=== PATIENT | female | born 1950 | race Caucasian/White ===

== ENCOUNTER → 2017-02-16 | Outpatient (CLI) | payer BC ==
[~2017-02-16] MED LIST: IBUP-1277 PO; NAPR220T PO
== END | disposition home or self-care (01) ==
LOC: C.PAPS 12:30
PROVIDERS: ATTEND Obstetrics & Gynecology
DX: Z12.4 Encounter for screening for malignant neoplasm of cervix (principal); Z78.0 Asymptomatic menopausal state

== ENCOUNTER → 2017-02-17 | Outpatient (CLI) | payer BC ==
--- NOTE | 2017-02-19 08:12 | MAMMOGRAPHY REPORT ---
BILATERAL DIGITAL SCREENING MAMMOGRAM TOMOSYNTHESIS WITH CAD: 02/17/2017 CLINICAL HISTORY: Routine screening. Patient has no complaints. TECHNIQUE: Breast tomosynthesis in addition to standard 2D mammography was performed. Current study was also evaluated with a Computer Aided Detection (CAD) system. COMPARISON: Comparison is made to exams dated: 02/26/2016 mammogram, 02/26/2016 stereotactic biopsy, 02/12/2016 mammogram, 01/24/2016 mammogram, 08/18/2011 mammogram, and 08/07/2010 mammogram - [facility]. BREAST COMPOSITION: There are scattered areas of fibroglandular density in both breasts. FINDINGS: There are stable metallic biopsy markers in each breast, denoting the site of prior benign stereotactic biopsies. There is a new small subtle area of architectural distortion just lateral to the biopsy marker in the right breast, on the CC projection that likely represent postbiopsy change (seen on right CC tomosynthesis slice 23/69). However, additional spot compression tomosynthesis vie ws and possible ultrasound are recommended to exclude a subtle developing mass. There are stable groupings of benign-appearing calcifications in both breasts. No other suspicious ma ss, architectural distortion or cluster of microcalcifications is seen. IMPRESSION: ACR BI-RADS CATEGORY 0: INCOMPLETE EVALUATION: NEED ADDITIONAL IMAGING EVALUATION The small subtle new area of architectural distortion lateral to the biopsy marker clip in the right posterior breast needs additional imaging evaluation. The patient will be called to schedule an appointment. Approximately 10% of breast cancers are not detected with mammography. A negative mammographic report should not delay biopsy if a clinically suggestive mass is present. Radha Farooq M.D. ay/:02/17/2017 17:11:26 Zoology Technical Officer: Beena Campbell, [facility] letter sent: Addl Imaging 0 BI-RADS Code: ACR BI-RADS Category 0: Incomplete Evaluation: Need Additional Imaging Evaluation
== END | disposition home or self-care (01) ==
LOC: C.MAMM 07:16
PROVIDERS: ATTEND Obstetrics & Gynecology
DX: Z12.31 Encounter for screening mammogram for malignant neoplasm of breast (principal); R92.8 Other abnormal and inconclusive findings on diagnostic imaging of breast; Z98.890 Other specified postprocedural states

== ENCOUNTER → 2017-03-03 | Outpatient (CLI) | payer BC ==
--- NOTE | 2017-03-03 15:17 | MAMMOGRAPHY REPORT ---
UNILATERAL RIGHT DIGITAL DIAGNOSTIC MAMMOGRAM TOMOSYNTHESIS AND TARGETED RIGHT ULTRASOUND: 03/03/2017 CLINICAL HISTORY: History of benign right breast stereotactic biopsy January 2016. The patient was called back from screening mammogram for possible architectural distortion at the biopsy site. TECHNIQUE: Breast tomosynthesis in addition to standard 2D mammography was performed. Spot compress ion right CC and MLO tomosynthesis images including C views were obtained. COMPARISON: Comparison is made to exams dated: 02/17/2017 mammogram, 02/26/2016 mammogram, 6 stereotactic biopsy, 02/12/2016 mammogram, 01/24/2016 mammogram, and 08/07/2010 mammogram - [facility]. BREAST COMPOSITION: There are scattered areas of fibroglandular density in the right breast. FINDINGS: The previously described possible architectural distortion seen near the biopsy marker clip in the right upper outer quadrant does not clearly persist on the spot compression views. The tissu e in this region has the appearance of normal fibroglandular tissue on the additional tomosynthesis i mages, without a suspicious mass or persistent architectural distortion seen. The tissue in this reg ion appears similar to prior exams on the additional views, including the 2010 exam. Targeted ultrasound was performed of the right upper outer quadrant in the region of the questionable architectural distortion. Sonographically normal tissue is seen in this region, without evidence of a mass or other suspicious sonographic abnormality. IMPRESSION: ACR BI-RADS CATEGORY 2: BENIGN, TARGETED ULTRASOUND ACR BI-RADS CATEGORY 2: BENIGN The previously described possible architectural distortion seen adjacent to the biopsy marker clip fr om prior benign stereotactic biopsy does not persist on the additional views, with no corresponding s uspicious sonographic abnormality evident. Findings are benign and felt to represent normal fibrogla ndular tissue. There is no mammographic or targeted sonographic evidence of malignancy. A 1 year scre ening mammogram is recommended. The patient has been verbally notified of the results. Approximately 10% of breast cancers are not detected with mammography. A negative mammographic report should not delay biopsy if a clinically suggestive mass is present. Rosaura Prince M.D. /:03/03/2017 08:34:11 Endorsement Clerk: Beena Campbell, [facility] letter sent: Normal 1/2 BI-RADS Code: ACR BI-RADS Category 2: Benign Ultrasound BI-RADS: ACR BI-RADS Category 2: Benign
== END | disposition home or self-care (01) ==
LOC: C.MAMM 08:02
PROVIDERS: ATTEND Obstetrics & Gynecology
DX: R92.8 Other abnormal and inconclusive findings on diagnostic imaging of breast (principal)

== ENCOUNTER → 2017-03-25 | Outpatient (CLI) | payer BC ==
[2017-03-25 16:01] LABS: MANUAL MICROSCOPIC REQUIRED? YES; URINE APPEARANCE CLOUDY (CLEAR); URINE BILIRUBIN NEG (NEG); URINE COLOR RED; URINE NITRITE NEG (NEG); URINE PH 6.5 (4.5-7.5); URINE SPECIFIC GRAVITY 1.015 (1.000-1.030); UROBILINOGEN NEG (NEG)
[2017-03-25 16:02] LABS: REVIEW REQ? NO
[2017-03-25 16:03] LABS: URINE RBC >30 /hpf (0-4)
[2017-03-25 16:04] LABS: URINE BACTERIA NEG (NEG); ZZUR CULT IF INDIC CLEAN CATCH YES
== END | disposition home or self-care (01) ==
LOC: C.LABSPEC 15:26
PROVIDERS: ATTEND Internal Medicine
DX: R39.9 Unspecified symptoms and signs involving the genitourinary system (principal)

== ENCOUNTER 2020-08-20 11:32 | Inpatient (IN) ==
--- NOTE | 2020-07-25 13:50 | PAT Medication Instructions ---
Medication Instructions Date of Service July 25, 2020 Home Medications Medication Instructions Recorded vitamins A,C,U-tnog-eijwxs 7,160 1 tab PO BID #60 tab 04/04/20 unit-113 mg-100 unit tablet atorvastatin 20 mg tablet 20 mg PO HS #90 tab 05/10/20 vitamins A,C,U-srug-vdfmjr 7,160 unit-113 mg-100 unit tablet 1 tab PO BID atorvastatin 20 mg tablet 20 mg PO HS meloxicam 15 mg tablet 15 mg PO QAM acetaminophen [Acetaminophen Extra Strength] 1,000 mg PO Q8H PRN cranberry 500 mg PO QAM multivitamin 1 tab PO QAM potassium gluconate 595 mg PO QAM ASK your surgeon for instructions meloxicam 15 mg tablet 15 mg PO QAM STOP taking 2 weeks before surgery (or as soon as possible if surgery is within 2 weeks) vitamins A,C,W-oxla-fucxzx 7,160 unit-113 mg-100 unit tablet 1 tab PO BID cranberry 500 mg PO QAM DO NOT take the morning of surgery multivitamin 1 tab PO QAM potassium gluconate 595 mg PO QAM Take morning of surgery With a small sip of water, OTHERWISE NOTHING TO EAT OR DRINK AFTER MIDNIGHT: acetaminophen [Acetaminophen Extra Strength] 1,000 mg PO Q8H PRN (okay to take up to 4 hours prior to surgery if needed) Take evening before surgery atorvastatin 20 mg tablet 20 mg PO HS acetaminophen [Acetaminophen Extra Strength] 1,000 mg PO Q8H PRN (if needed) Other Notes If you have any questions please call us at [phone] or [phone] or [phone] or [phone]
--- NOTE | 2020-07-31 08:54 | Anesthesiology Consultation ---
Date of Service July 31, 2020 Assessment & Plan (1) Encounter for pre-operative examination: COVID screening: Per assessment on 07/31: Travel screen negative, no known COVID- 19 positive contacts or current COVID-19 related symptoms. Patient fully vaccinated. Surgeon arranging preop COVID testing. Awaiting results. Chart Review Chart Review: Acceptable Risk for Surgery (pending surgeon-ordered PCP clearance) and Patient seen in Pre Admission Testing Teaching & Discussion Pre-Anesthesia Teaching/Discussion Notes: Instructed NPO after midnight before surgery,except medications with 15 cc of water. Medication instructions provided according to the PAT guidelines. History Surgery Operation Date: 08/20/20 07:15 Proposed Procedures p Right Total Hip Arthroplasty - Akbar Lion DO Height/Weight Height: 5 ft 4.5 in Weight: 99.5 kg Allergies Allergy/AdvReac Type Severity Reaction Status Date / Time ondansetron Allergy Intermediate Hives Verified 07/31/20 08:52 morphine AdvReac Mild GI upset Verified 07/31/20 08:52 Medications Home Medications Medication Instructions Recorded Confirmed Last Taken vitamins A,C,A-zalu-qutlte 7,160 1 tab PO BID #60 tab 04/04/20 07/30/20 Unknown unit-113 mg-100 unit tablet atorvastatin 20 mg tablet 20 mg PO HS #90 tab 05/10/20 07/30/20 Unknown meloxicam 15 mg tablet 15 mg PO QAM 07/18/20 07/30/20 Unknown acetaminophen [Acetaminophen Extra 1,000 mg PO Q8H PRN 07/23/20 07/30/20 Unknown Strength] cranberry 500 mg PO QAM 07/23/20 07/30/20 Unknown multivitamin 1 tab PO QAM 07/23/20 07/30/20 Unknown potassium gluconate 595 mg PO QAM 07/23/20 07/30/20 Unknown Past Medical History Medical History Degenerative disc disease Gallstone Heartburn occasional Hx of cervical cancer s/p chemo, radiation Hyperlipidemia Obesity Osteoarthritis Exercise / Class Metabolic Activity II 4-5 Yardwork/Stairs/Walk up hill (one flight of stairs (no chest pain, no sob)) Past Family History Family History Father Diabetes Brother Diabetes Sister Diabetes Other No family history of adverse response to anesthesia Denies family history of Ovarian cancer Prostate cancer Myocardial infarction Breast cancer Colorectal cancer Past Surgical History Surgical History History of ankle surgery Left History of conization of cervix History of tooth extraction Past Anesthesia History No Hx of Anesthesia Complications and No Family Hx of Anesthesia Complications History of PONV No Hx of PONV and No Hx of Motion Sickness Social History Smoking Status: Current every day smoker tobacco type: cigarettes Smoking cigarettes per day: 10-20 cigs/day (tobacco use x 50+ years) Do You Dip or Chew Tobacco: No Hx Alcohol Use: Yes Alcohol type: hard liquor alcohol intake frequency: a few times a week Hx Substance Use: No substance use type: does not use Review of Systems Patient denies chest pain, shortness of breath, dyspnea on exertion, fever, chills, cough, wheezing, palpitations. Physical Exam Vital Signs VITALS BP 123/77 P 85 TEMP 98.4 SP02 98%RA RESP 18 PHYSICAL Full cervical extension range of motion. Full TMJ range of motion. TMD 3 finger breaths Mallampati Score 2 Dentition: no lower teeth (full denture) Lungs: dimished breath sounds Cardiac: regular rate and rhythm, distant heart sounds Spine: normal Carotid arteries: negative bruit Extremities: no edema Testing Laboratory Results 07/31/20 09:18 07/31/20 09:18 PT 10.3 Seconds (9.0-12.0) 07/31/20 09:18 INR 1.0 (0.9-1.1) 07/31/20 09:18 APTT 27.1 Seconds (21.0-31.0) 07/31/20 09:18 Hemoglobin A1c 6.0 % (4.5-5.6) H 07/31/20 09:18 Urine Color Yellow 07/31/20 09:18 Urine Appearance Clear (Clear) 07/31/20 09:18 Urine pH 6.5 (4.5-7.5) 07/31/20 09:18 Ur Specific [place] 1.011 (1.000-1.030) 07/31/20 09:18 Urine Protein Negative (Negative) 07/31/20 09:18 Urine Glucose (UA) Negative (Negative) 07/31/20 09:18 Urine Ketones Negative (Negative) 07/31/20 09:18 Urine Nitrite Negative (Negative) 07/31/20 09:18 Ur Leukocyte Esterase 1+ (Negative) H 07/31/20 09:18 Urine WBC (Auto) 10-30 /hpf (0-5) H 07/31/20 09:18 Urine RBC (Auto) 0-4 /hpf (0-4) 07/31/20 09:18 U Hyaline Cast (Auto) 0 /lpf (0-5) 07/31/20 09:18 U Epithel Cells (Auto) >30 /lpf (0-5) H 07/31/20 09:18 Urine Bacteria (Auto) 2+ (Negative) H 07/31/20 09:18 Blood Type A Negative 07/31/20 09:18 Antibody Screen NEGATIVE 07/31/20 09:18 Surgeon's office made aware of abnormal UA* Electrocardiogram Date: 07/31/20 Normal sinus rhythm with sinus arrhythmia at 67 bpm. Chest X-Ray Date: 07/31/20 Findings: + NAD
--- NOTE | 2020-07-31 09:59 | XRay Report ---
XR chest Pre-admission PA/Lat CLINICAL HISTORY: Preoperative chest COMPARISON STUDY: No previous studies for comparison. FINDINGS: The cardiac and mediastinal contours are normal. There is no evidence of focal pulmonary co nsolidation. There is no evidence of failure. No pleural effusions are visualized.[ IMPRESSION: No active disease in the chest. ACT 112: Negative or not required by law. Electronically signed by: Ghanshyam Verdin M.D. 07/31/2020 9:58 AM
[2020-07-31 10:48] LABS: Basophils # (auto) 0.01 K/uL (0-0.2); Basophils % (auto) 0.1 %; Eosinophils # (auto) 0.05 K/uL (0-0.5); Eosinophils % (auto) 0.7 %; Hematocrit (blood only) 39.2 % (37-47); Hemoglobin 13.1 g/dL (12.0-16.0); Immature Granulocytes # (auto) 0.02 K/uL (0.00-0.02); Immature Granulocytes % (auto) 0.3 %; Lymphocytes # (auto) 1.49 K/uL (1.2-3.4); Lymphocytes % (auto) 21.9 %; Mean Corpuscular Hemoglobin 28.7 pg (25-34); Mean Corpuscular Hgb Conc 33.4 g/dL (32-36); Mean Corpuscular Volume 85.8 fL (80-100); Mean Platelet Volume 9.7 fL (7.4-10.4); Monocytes % (auto) 7.4 %; Neutrophils # (auto) 4.73 K/uL (1.4-6.5); Neutrophils % (auto) 69.6 %; Platelet Count 242 K/uL (130-400); RDW Standard Deviation 40.7 fL (36.4-46.3); Red Blood Count 4.57 M/uL (4.2-5.4)
[2020-07-31 10:52] LABS: Appearance Urine Clear (Clear); Bacteria Urine Automated 2+ (Negative); Bilirubin Urine Negative (Negative); Blood Urine Negative (Negative); Cast Urine Automated 0 /lpf (0-5); Color Urine Yellow; Epithelial Cell Urine Auto >30 /lpf (0-5); Glucose Urine UA Negative (Negative); Ketones Urine Negative (Negative); Leukocyte Esterase Urine 1+ (Negative); Nitrite Urine Negative (Negative); Protein Urine Negative (Negative); RBC Urine Automated 0-4 /hpf (0-4); Specific Gravity Urine 1.011 (1.000-1.030); Urobilinogen Urine Negative (Negative); pH Urine 6.5 (4.5-7.5)
[2020-07-31 10:55] LABS: Estimated Average Glucose 126 mg/dl
[2020-07-31 11:04] LABS: Partial Thromboplastin Time 27.1 Seconds (21.0-31.0); Prothrombin Time 10.3 Seconds (9.0-12.0)
--- NOTE | 2020-07-31 11:29 | Electrocardiogram Report ---
Test Reason : Blood Pressure : / mmHG Vent. Rate : 067 BPM Atrial Rate : 067 BPM P-R Int : 176 ms QRS Dur : 088 ms QT Int : 382 ms P-R-T Axes : 072 044 060 degrees QTc Int : 403 ms Normal sinus rhythm with sinus arrhythmia Normal ECG When compared with ECG of 24-MAR-2013 05:41, Vent. rate has decreased BY 35 BPM T wave amplitude has increased in Anterior leads Confirmed by Louis Mccabe ([id number]) on 07/31/2020 11:29:25 AM Referred By: Akbar Lion Confirmed By:Louis Mccabe
[2020-07-31 12:41] LABS: Albumin Level 3.7 gm/dl (3.4-5.0); BUN Creatinine Ratio 13.8 (10-20); Calcium 9.7 mg/dl (8.5-10.1); Creatinine Clr Calc Pharmacy 73.2 ml/min; Est GFR (African American) 82.2; Est GFR (Non-African American) 70.9; Potassium 4.6 mmol/L (3.5-5.1)
--- NOTE | 2020-08-18 10:03 | History & Physical Report ---
Date of Service August 20, 2020 Assessment & Plan (1) Degenerative joint disease of right hip: I have indicated the patient for right total hip replacement. The risks, benefits and complications of surgery were explained to the patient which include but not limited to infection, acute blood loss, DVT/PE, injury to nerves, vessels, bone, soft tissue, arthrofibrosis, chronic pain, failure of the prosthesis, hip dislocation, leg length discrepancy, need for additional surgery, cardiac and pulmonary events and . The patient wished to proceed with surgery and informed consent was obtained at this time. We will plan for 81mg ASA BID post-operatively for DVT prophylaxis. Upon discharge the patient will be discharged home with home health services. Appropriate clearances by PCP were obtained. History of Present Illness Chief Complaint: Right hip pain/DJD Primary Care Provider: Danny Bañuelos MD The patient is a 69 year old female who presents with complaints of severe right hip pain and DJD. The patient has failed outpatient conservative treatments to this point which included NSAIDs, activity modification, home exercise/walking program. The patient's pain and limited function have progressed to the point where they severely hinder their activities of daily living and they no longer tolerate exercise programs. They are requesting to proceed with total hip replacement surgery. Allergies Allergy/AdvReac Type Severity Reaction Status Date / Time ondansetron Allergy Intermediate Hives Verified 08/20/20 12:07 morphine AdvReac Mild GI upset Verified 08/20/20 12:07 Home Medications Medication Instructions Recorded Confirmed Type vitamins A,C,Q-kezq-upzlgb 7,160 1 tab PO BID #60 tab 04/04/20 08/20/20 Rx unit-113 mg-100 unit tablet atorvastatin 20 mg tablet 20 mg PO HS #90 tab 05/10/20 08/20/20 Rx meloxicam 15 mg tablet 15 mg PO QAM 07/18/20 08/20/20 History acetaminophen [Acetaminophen Extra 1,000 mg PO Q8H PRN 07/23/20 08/20/20 History Strength] cranberry 500 mg PO QAM 07/23/20 08/20/20 History multivitamin 1 tab PO QAM 07/23/20 08/20/20 History potassium gluconate 595 mg PO QAM 07/23/20 08/20/20 History Past Med/Surg History Medical History Degenerative disc disease Gallstone Heartburn occasional Hx of cervical cancer s/p chemo, radiation Hyperlipidemia Obesity Osteoarthritis Smoker Surgical History History of ankle surgery Left History of conization of cervix History of tooth extraction Family History Father Diabetes Brother Diabetes Sister Diabetes Other No family history of adverse response to anesthesia Denies family history of Ovarian cancer Prostate cancer Myocardial infarction Breast cancer Colorectal cancer Social History Smoking Status: Current every day smoker Age Started Using Tobacco: 16; packs per day: 1; Years Smoked: 52; Cigarettes Per Day: 10-20 cigs/day (tobacco use x 50+ years); Second Hand Exposure: Yes ( SMOKES); Do You Dip or Chew Tobacco: No; Tobacco Cessation Education Requested by Patient: No Hx Alcohol Use: Yes Alcohol type: hard liquor Hx Substance Use: No Preferred Language: Sinhala Visual Impairment: No Limitations Hearing Ability: Normal Test Deskman Required: No Beliefs That Will Affect Care: None marital status: Current Living Situation: Spouse current occupational status: retired Feels Safe at Home: Yes Safety Concerns: Feels Safe At This Time Childhood Exposure to Second-Hand Smoke: Yes caffeine: Yes Dental Care, Regularly: No Physical Activity Frequency: Does not Exercise Physical Activity Frequency Comment: not able to physical condition Seatbelt Use: always Sunscreen Use: Yes Assistive Devices: Denture - Lower and Glasses Review of Systems 2 Review of Systems: All systems reviewed & are unremarkable except as noted in HPI & below Constitutional: as per Subjective / HPI Physical Exam Physical Exam: RLE NVSI +EHL/FHL/TA/GS SILT grossly, +2 DP pulse, compartments soft NT, limited painful ROM of the hip, antalgic gait. Constitutional: WD/WN, vitals as above Eyes: PERRL, conjunctivae normal, anicteric sclerae ENMT: external ear and nose normal, oropharynx normal Neck: trachea midline, no thyromegaly Respiratory: normal respiratory effort, lungs clear to auscultation Cardiovascular: RRR, no murmur, no edema Gastrointestinal (Abdomen): normal bowel sounds, soft, nontender, no hepatosplenomegaly Musculoskeletal: no cyanosis or clubbing, extremities motor strength 5/5 Skin: no rashes, warm and dry Neurologic: patellar DTR's 2+ bilat, sensation intact Psychiatric: A+Ox3, euthymic affect Lymphatic: no cervical or axillary lymphadenopathy Results & Data Results & Data ([facility]) Diagnostic Findings Multiple views of the hip demonstrates severe DJD with complete loss of the joint space. +osteophytes, +sclerosis, +subchondral cysts. Pre Admission Testing Addendum Laboratory Results 07/31/20 09:18 07/31/20 09:18 PT 10.3 Seconds (9.0-12.0) 07/31/20 09:18 INR 1.0 (0.9-1.1) 07/31/20 09:18 APTT 27.1 Seconds (21.0-31.0) 07/31/20 09:18 Hemoglobin A1c 6.0 % (4.5-5.6) H 07/31/20 09:18 Urine Color Yellow 07/31/20 09:18 Urine Appearance Clear (Clear) 07/31/20 09:18 Urine pH 6.5 (4.5-7.5) 07/31/20 09:18 Ur Specific [place] 1.011 (1.000-1.030) 07/31/20 09:18 Urine Protein Negative (Negative) 07/31/20 09:18 Urine Glucose (UA) Negative (Negative) 07/31/20 09:18 Urine Ketones Negative (Negative) 07/31/20 09:18 Urine Nitrite Negative (Negative) 07/31/20 09:18 Ur Leukocyte Esterase 1+ (Negative) H 07/31/20 09:18 Urine WBC (Auto) 10-30 /hpf (0-5) H 07/31/20 09:18 Urine RBC (Auto) 0-4 /hpf (0-4) 07/31/20 09:18 U Hyaline Cast (Auto) 0 /lpf (0-5) 07/31/20 09:18 U Epithel Cells (Auto) >30 /lpf (0-5) H 07/31/20 09:18 Urine Bacteria (Auto) 2+ (Negative) H 07/31/20 09:18 Blood Type A Negative 07/31/20 09:18 Antibody Screen NEGATIVE 07/31/20 09:18 07/31/20 09:18 Urine Culture - Final Urine,Clean Catch Escherichia coli
[~2020-08-20 11:32] MED LIST changes: +ACETAMINOPHEN 500 MG TAB PO SCH; +BUPIVACAINE 0.5 % 5 MG/1 ML PF 10ML VIAL ONE; +CeleBREX 200 MG CAP PO SCH; +FAMOTIDINE 20 MG TAB PO SCH; +GABAPENTIN 300 MG CAP PO SCH; -IBUP-1277 PO; +LR 500ML BOLUS, THEN 15ML/HR IV SCH; +METOCLOPRAMIDE HCL 10 MG TABLET PO SCH; -NAPR220T PO; +ROPIVACAINE 0.5% HCL/PF 150 MG, BUPIVACAINE 0.75% MPF 20 ML, EPINEPHrine 30MG/30ML (OR ... INSTIL SCH; +Scopolamine 1 MG TDSY TD SCH; +TRANEXAMIC ACID 1,000 MG **IV Intra-op IV SCH; +TRANEXAMIC ACID 1,000 MG **IV Pre-op IV SCH; +ceFAZolin 2000MG 2,000 MG/15 ML SYR IV SCH; +dexAMETHasone 4 MG TAB PO SCH
[2020-08-20] MEDS ORDERED: ePHEDrine sulfate 50 MG/ML AMP IV PRN (11:48)
[2020-08-20] MEDS ORDERED: PHENYLEPHRINE 100MCG/ML 5ML SYR IV PRN (11:48)
[2020-08-20] MEDS ORDERED: HYDROmorphone INJ 1 MG/ML SYRINGE IV PRN (11:48)
[2020-08-20] MEDS ORDERED: ATROPINE SULFATE 0.1 MG/ML 10ML SYR IV PRN (11:48)
[2020-08-20] MEDS ORDERED: MEPERIDINE HCL 25 MG/ML CARP/VIAL IV PRN (11:48)
[2020-08-20] MEDS ORDERED: fentaNYL citrate 100 MCG/2 ML VIAL IV PRN (11:48)
[2020-08-20] MEDS ORDERED: LABETALOL HCL IV 5 MG/ML 20ML IV PRN (11:48)
[2020-08-20] MEDS ORDERED: MIDAZOLAM HCL 1 MG/ML 2ML VIAL ONE ×3 (14:36→16:51)
[2020-08-20] MEDS ORDERED: PROPOFOL IV EMULSION 10 MG/ML 20 ML VIAL IV ONE ×3 (14:38→16:50)
[2020-08-20] MEDS ORDERED: ORTHO JOINT ANESTHETIC ONE (15:00)
--- NOTE | 2020-08-20 15:37 | History & Physical Bridge Note ---
Date of Service August 20, 2020 History & Physical Bridge Note I have examined the patient, reviewed the History & Physical and in the interval since the performance of the History & Physical I have noted the following changes of clinical significance: no changes noted
[2020-08-20] MEDS ORDERED: KETAMINE 50 MG/5 ML SYRINGE ONE (16:47)
[2020-08-20] MEDS ORDERED: fentaNYL citrate 100 MCG/2 ML VIAL ONE (17:07)
--- NOTE | 2020-08-20 17:18 | Post Operative Brief Note ---
Immediate Post Op Note v1 Date of Surgery August 20, 2020 Pre & Post Diagnosis Operation Date: 08/20/20 14:15 Pre-Op Diagnosis: Degenerative joint disease of right hip Post-Op Diagnosis: Degenerative joint disease of right hip I identified the patient and participated in the time-out.: Yes Procedure Operation Date: 08/20/20 14:15 Actual Procedures p Right Total Hip Arthroplasty(Right) - Akbar Lion DO Surgeon Akbar Lion DO Tower Equipment Repairer Glenn Washburn Estimated Blood Loss 190 Findings Consistent with Post-Op Diagnosis Fluids See anesthesia report Specimens Femoral head Anesthesia Type Spinal MAC Complications none Disposition Disposition: Recovery Room Overlapping Procedure I was present for: the critical portions of procedure. I was immediately available: during the entire case. Back up surgeon: was not required during procedure.
--- NOTE | 2020-08-20 17:21 | Operative Report ---
Post Operative Report Pre & Post Diagnosis Operation Date: 08/20/20 14:15 Pre-Op Diagnosis: Degenerative joint disease of right hip Post-Op Diagnosis: Degenerative joint disease of right hip I identified the patient and participated in the time-out.: Yes Procedure Operation Date: 08/20/20 14:15 Actual Procedures p Right Total Hip Arthroplasty(Right) - Akbar Lion DO Surgeon Akbar Lion DO Assistant Press Operator Glenn Washburn Estimated Blood Loss 190 Findings Consistent with Post-Op Diagnosis Fluids See anesthesia report Specimens Femoral head Anesthesia Type Spinal MAC Complications none Disposition Disposition: Recovery Room Indications The patient is a 60-year-old female who presents with severe progressive right hip DJD who has failed outpatient conservative treatments. I indicated the patient for a total hip replacement and the risks and benefits were explained in detail which included but not limited to infection, bleeding, blood clot, damage to surrounding bone, nerves, vessels, soft tissue, hip dislocation, failure of the prosthesis, leg length discrepancy, need for additional surgery and . The patient agreed to proceed with replacement of the hip and informed consent was obtained. Appropriate clearances were obtained. Description of Procedure COMPONENTS USED: Hossein Biomet hip system: Acetabulum size 50 G7 osteo-Ti, femur size 11 reduced extended offset, femoral head 36-3.5, liner 50x36, acetabular screw 25 mm x 1. Following induction of adequate spinal anesthesia, the patient was transferred to the OR table and placed in lateral decubitus position with left hip down. The right hip was prepped and draped in the typical sterile fashion. A timeout was performed, patient identified and site petar confirmed. Appropriate antibiotics were given. A standard posterolateral/Justin-Langenbeck incision was made. Subcutaneous tissue was sharply dissected. Electrocautery was utilized for hemostasis. The fascia was incised throughout the length of the wound and retracted with the Charnley retractor. The bursa was taken down and the short external rotators were identified. The piriformis was tagged with #1 Vicryl. The short external rotators and capsule were divided from the posterior aspect of the femur using electrocautery. The posterior capsule was tagged with #1 Vicryl. Both external rotators and posterior capsule were swept posterior and protected, along with protecting the sciatic nerve. The hip was dislocated by flexion and internally rotation in a controlled manner and exposure of the femoral neck was gained with an old-style Hohmann and a blunt cobra retractor. A femoral cutting guide was utilized for making the appropriate level femoral neck cut with reciprocating saw. The femoral head was removed, measured and reserved on the back table. Next, attention was turned to the acetabulum. A posterior and anterior offset retractor was placed to gain adequate exposure. Acetabular labrum as well as posterior capsule elements were removed using electrocautery and forceps. Fovea centralis was cleared of all soft tissue. Sequential reaming was performed starting at 44 mm and carried up to a 49 mm and decision was made to proceed with impaction of a 50 mm G7 Osteo-Ti cup. This was impacted and held using a single 25 mm acetabular screw. The trial acetabular liner was placed at this time. Next, attention was turned to the proximal femur where a Bovie and pickup was used to further clear short external rotators from their insertion on the femur. Box osteotome and canal finder was used to gain access to the femoral canal and the lateral reamer on power was used to further open the proximal lateral canal. Sequentially rasping was carried up to a 11 which gave good fit and fill of the proximal femur. A trial reduction was carried out with a reduced extended offset femoral neck component a 36-3.5 mm femoral head. The trial reduction was stable in all degrees of rotation with no [id number] impingement. The hip was dislocated, trial components were removed and access to the acetabulum was re-established. The trial liner was removed and the cup was irrigated to ensure all debris was removed. The final acetabular liner was inserted and properly seated in the cup. Access to the femur was once more gained and the size 11 femoral stem with reduced extended offset was impacted into position. The hip was once more assessed with the 36-3.5 mm femoral head. Stability was accessed and found to be excellent with equal leg lengths. The hip was dislocated for the last time and the final 36-3.5 ceramic femoral head was impacted in place and the hip was reduced. Range of motion was checked once again and found to be stable. A Betadine soak was performed. After 3 minutes, the hip was once more irrigated with copious sterile saline solution with bacitracin. The mary grace-incisional soft tissue was injected utilizing [facility] ortho mix which includes a combination of Ropivicaine 0.5% 150mg, Bupivicaine 0.5%/Epinephrine 1:200,000 30ml, Toradol 30mg, Dexamethasone 4mg, Ketamine 10mg, Clonidine 100mcg and NSS 30ml Orthomix solution. The piriformis, external rotators and capsule were repaired to the greater trochanter through bone tunnels using #5 FiberWire. The fascia was closed using #1 Vicryl, subcutaneous tissue was closed using 2-0 Vicryl, and skin was closed with mary and a sterile dry dressing was applied which included dior incisional VAC. The patient tolerated the procedure well and was transported to PACU in stable condition. Due to the complex nature of the procedure, the entire surgery was performed with the operational assistance of Glenn Washburn PA-C. The nurse's assistant, under direct supervision, was involved in the actual performance of all aspects of the surgical procedure including patient positioning, hemostasis, tissue retraction, instrument management and wound closure. I attest to the content of the Intraoperative Record and any orders documented therein. Any exceptions are noted below.
--- NOTE | 2020-08-20 18:09 | Orthopedic Progress Note ---
Date of Service August 20, 2020 Assessment & Plan (1) Degenerative joint disease of right hip: Status post right total hip arthroplasty -Ancef x24 -DVT prophylaxis: SCDs, teds, 81 mg ASA twice daily -Weight-bear as tolerates right lower extremity -PT/OT -Posterior hip precautions -Postoperative x-ray demonstrates a well aligned well fixed prosthesis without fracture or dislocation -A.m. labs -DC planning Subjective Post Operative Progress Note Patient seen in PACU, comfortable, denies complaints, pain well controlled, no acute issues. Review of Systems Review of Systems: All systems reviewed & are unremarkable except as noted in HPI & below Constitutional: as per Subjective / HPI Physical Exam Physical Exam: Right lower extremity physical exam limited secondary to spinal anesthesia, +2 dorsalis pedis pulse, compartment soft nontender, dressing clean dry and intact, abduction pillow in place. Constitutional: WD/WN, vitals as above Results & Data ([facility]) Vital Signs (Past 12 Hours) Vital Signs Temp Pulse Pulse Resp BP Pulse Ox 08/20/20 17:50 75 18 145/88 H 98 08/20/20 17:44 36.1 C L 90 16 151/81 H 95 08/20/20 11:56 37 C 85 20 177/94 H 99
--- NOTE | 2020-08-20 18:13 | XRay Report ---
XR hip 1V RT w pelvis CLINICAL HISTORY: IN PACU - A/P PELVIS and LATERAL HIP COMPARISON: None. DISCUSSION: There are postsurgical changes of a total right hip arthroplasty. The acetabular and femo ral components appear well seated. There is gas within soft tissues consistent with recent surgery. T here are overlying skin mary. There are linear opaque densities lateral to the bladder to the righ t of midline. These cannot be further characterized on this study. These are potentially artifactual although calcification or contrast could appear similar.. IMPRESSION: 1. Postsurgical changes of a total right hip arthroplasty. No evidence of dislocation. ACT 112: Negative or not required by law. Electronically signed by: Ghanshyam Verdin M.D. 08/20/2020 6:11 PM
--- NOTE | 2020-08-20 18:29 | Anesthesiology Progress Note ---
Date of Service August 20, 2020 Anesthesia Post Procedure Vital Signs Vital Signs: Temp Pulse Pulse Resp BP Pulse Ox 08/20/20 18:20 36.5 C 63 16 137/88 97 08/20/20 18:10 77 18 145/76 H 98 08/20/20 18:00 68 20 119/80 98 08/20/20 17:50 75 18 145/88 H 98 08/20/20 17:44 36.1 C L 90 16 151/81 H 95 08/20/20 11:56 37 C 85 20 177/94 H 99 Transfer of Care Handoff Completed per policy Notes Mental Status: alert / awake / arousable Patient Amnestic to Procedure: Yes Nausea / Vomiting: adequately controlled Pain: adequately controlled Airway Patency, RR, SpO2: stable & adequate BP & HR: stable & adequate Hydration State: stable & adequate Neuraxial Anesthesia: was administered and sensory block is resolving Anesthetic Complications: no major complications apparent
[2020-08-20] MEDS ORDERED: NALOXONE HCL 0.4 MG/1 ML VIAL/CARP IV PRN (18:46)
[2020-08-20] MEDS ORDERED: METOCLOPRAMIDE HCL INJ 5 MG/ML 2 ML VIAL IV PRN (18:46)
[2020-08-20] MEDS ORDERED: HYDROmorphone INJ 0.5 MG/0.5 ML SYR IV PRN (18:46)
[2020-08-20] MEDS ORDERED: bisacodyL 10 MG SUPP PR PRN (18:46)
[2020-08-20] MEDS ORDERED: MAGNESIUM HYDROXIDE SUSP 30 ML UDC PO PRN (18:46)
[2020-08-20] MEDS ORDERED: diphenhydrAMINE Capsule 25 MG CAP PO PRN (18:46)
[2020-08-20] MEDS: SODIUM CHLORIDE 0.9% 1000ML 1,000 ML IV SCH (19:17)
[2020-08-20] MEDS: Scopolamine CHECK PATCH PLACEMENT SCH ×2 (19:17→23:08)
[2020-08-20] MEDS: KETOROLAC TROMETHAMINE 15 MG/ML VIAL IV SCH ×2 (19:31→23:08)
[2020-08-20] MEDS: ACETAMINOPHEN 500 MG TAB PO SCH (20:33)
[2020-08-20] MEDS: DOCUSATE SODIUM 100 MG CAP PO SCH (20:34)
[2020-08-20] MEDS ORDERED: SENNA 8.6 MG TAB PO SCH (21:00)
[2020-08-20] MEDS ORDERED: ATORVASTATIN 20 MG TAB PO SCH (21:00)
[2020-08-20] MEDS: oxyCODONE HCL IR 5 MG TAB (IMMEDIATE RELEASE) PO PRN (21:57)
[2020-08-20] MEDS: ceFAZolin 2000MG 2,000 MG/15 ML SYR IV SCH (23:08)
[2020-08-21] MEDS: ACETAMINOPHEN 500 MG TAB PO SCH (05:06)
[2020-08-21] MEDS: KETOROLAC TROMETHAMINE 15 MG/ML VIAL IV SCH ×2 (05:07→11:25)
[2020-08-21] MEDS: SODIUM CHLORIDE 0.9% 1000ML 1,000 ML IV SCH (05:12)
[2020-08-21 06:30] LABS: Basophils # (auto) 0.01 K/uL (0-0.2); Basophils % (auto) 0.1 %; Hematocrit (blood only) 35.5 % (37-47); Hemoglobin 11.9 g/dL (12.0-16.0); Immature Granulocytes # (auto) 0.04 K/uL (0.00-0.02); Immature Granulocytes % (auto) 0.2 %; Lymphocytes # (auto) 0.96 K/uL (1.2-3.4); Lymphocytes % (auto) 5.9 %; Mean Corpuscular Hemoglobin 28.5 pg (25-34); Mean Corpuscular Hgb Conc 33.5 g/dL (32-36); Mean Corpuscular Volume 84.9 fL (80-100); Mean Platelet Volume 9.3 fL (7.4-10.4); Monocytes % (auto) 6.7 %; Neutrophils # (auto) 14.26 K/uL (1.4-6.5); Neutrophils % (auto) 87.1 %; Platelet Count 268 K/uL (130-400); RDW Coefficient of Variation 12.9 % (11.5-14.5); RDW Standard Deviation 40.4 fL (36.4-46.3); Red Blood Count 4.18 M/uL (4.2-5.4); White Blood Count 16.37 K/uL (4.8-10.8)
[2020-08-21 06:59] LABS: BUN Creatinine Ratio 20.1 (10-20); Calcium 9.3 mg/dl (8.5-10.1); Creatinine Clr Calc Pharmacy 62.5 ml/min; Est GFR (African American) 68.2 ml/min; Est GFR (Non-African American) 58.9 ml/min; Potassium 4.1 mmol/L (3.5-5.1)
[2020-08-21] MEDS: oxyCODONE HCL IR 5 MG TAB (IMMEDIATE RELEASE) PO PRN (08:02)
[2020-08-21] MEDS: Scopolamine CHECK PATCH PLACEMENT SCH (08:03)
[2020-08-21] MEDS: ceFAZolin 2000MG 2,000 MG/15 ML SYR IV SCH (08:03)
[2020-08-21] MEDS: DOCUSATE SODIUM 100 MG CAP PO SCH (08:03)
[2020-08-21] MEDS ORDERED: ASPIRIN 81 MG ECTAB PO SCH (09:00)
[2020-08-21] MEDS ORDERED: MULTIVITAMIN TAB PO SCH (09:00)
[2020-08-21] MEDS ORDERED: NON-FORMULARY MEDICATION (Potassium Gluconate 595 mg (99 mg) Tablet) PO SCH (09:00)
--- NOTE | 2020-08-21 09:15 | Anesthesiology Progress Note ---
Date of Service August 21, 2020 Anesthesia Post Procedure Vital Signs Vital Signs: Temp Pulse Pulse Pulse Pulse Resp BP 08/21/20 07:23 36.6 C 60 16 124/76 08/21/20 03:27 36.4 C L 65 16 124/75 08/20/20 21:30 36.5 C 56 L 16 123/75 08/20/20 20:28 36.4 C L 81 16 143/76 H 08/20/20 19:29 36.4 C L 65 16 126/71 08/20/20 18:30 36.4 C L 79 14 146/82 H 08/20/20 18:20 36.5 C 63 16 137/88 08/20/20 18:10 77 18 145/76 H 08/20/20 18:00 68 20 119/80 08/20/20 17:50 75 18 145/88 H 08/20/20 17:44 36.1 C L 90 16 151/81 H 08/20/20 11:56 37 C 85 20 177/94 H Pulse Ox 08/21/20 07:23 93 08/21/20 03:27 92 08/20/20 21:30 94 08/20/20 20:28 98 08/20/20 19:29 94 08/20/20 18:30 99 08/20/20 18:20 97 08/20/20 18:10 98 08/20/20 18:00 98 08/20/20 17:50 98 08/20/20 17:44 95 08/20/20 11:56 99 Pain Intensity Right Hip: Pain Intensity: 5 Notes Mental Status: alert / awake / arousable and participated in evaluation Patient Amnestic to Procedure: Yes Nausea / Vomiting: adequately controlled Pain: adequately controlled Airway Patency, RR, SpO2: stable & adequate BP & HR: stable & adequate Hydration State: stable & adequate Neuraxial Anesthesia: was administered and sensory block resolved Anesthetic Complications: no major complications apparent
--- NOTE | 2020-08-21 09:33 | Orthopedic Progress Note ---
Date of Service August 21, 2020 Assessment & Plan (1) Degenerative joint disease of right hip: Postop day 1 status post right total hip arthroplasty -Ancef x24 then discontinue -DVT prophylaxis: SCDs, teds, 81 mg ASA twice daily -Weight-bear as tolerates right lower extremity -PT/OT -Posterior hip precautions -Postoperative x-ray demonstrates a well aligned well fixed prosthesis without fracture or dislocation -A.m. labs as [id number] secondary to surgical stress and/or pre operative steroids. Patient currently asymptomatic. -hgb 11.9 -DC planning -home with home health services upon discharge Admission and Anticipated Discharge Date Admission Date: August 20, 2020 Supervising Physician Co-Signing Physician Notes Patient seen and examined, agree with above assessment and plan. Subjective Postop day 1 Patient currently sitting up at the bedside. Awake and alert. Mild pain in the operative hip. No other complaints at this time. Denies shortness of breath, chest pain, lightheadedness. She is hoping to go home today. Physical Exam Physical Exam: Cristy dressing is clean, dry, and intact. Patient states that she had somehow inadvertently tore her original dressing and a new one and had to be placed by nursing staff. Thigh is soft and nontender. Calves are soft nontender. Neurovascular is intact. Toes are mobile. She has good dorsiflexion plantarflexion of the right foot. Leg lengths appear equal. Results & Data ([facility]) Vital Signs (Past 12 Hours) Vital Signs Temp Pulse Pulse Resp BP Pulse Ox 08/21/20 07:23 36.6 C 60 16 124/76 93 08/21/20 03:27 36.4 C L 65 16 124/75 92 08/20/20 21:30 36.5 C 56 L 16 123/75 94 Laboratory Results Laboratory Results WBC 16.37 K/uL (4.8-10.8) H 08/21/20 05:57 RBC 4.18 M/uL (4.2-5.4) L 08/21/20 05:57 Hgb 11.9 g/dL (12.0-16.0) L 08/21/20 05:57 Hct 35.5 % (37-47) L 08/21/20 05:57 MCV 84.9 fL (80-100) 08/21/20 05:57 MCH 28.5 pg (25-34) 08/21/20 05:57 MCHC 33.5 g/dL (32-36) 08/21/20 05:57 RDW Std Deviation 40.4 fL (36.4-46.3) 08/21/20 05:57 RDW Coeff of Nathan 12.9 % (11.5-14.5) 08/21/20 05:57 Plt Count 268 K/uL (130-400) 08/21/20 05:57 MPV 9.3 fL (7.4-10.4) 08/21/20 05:57 Immature Gran % (Auto) 0.2 % 08/21/20 05:57 Neut % (Auto) 87.1 % 08/21/20 05:57 Lymph % (Auto) 5.9 % 08/21/20 05:57 [place] % (Auto) 6.7 % 08/21/20 05:57 Eos % (Auto) 0.0 % 08/21/20 05:57 Baso % (Auto) 0.1 % 08/21/20 05:57 Neut # (Auto) 14.26 K/uL (1.4-6.5) H 08/21/20 05:57 Lymph # (Auto) 0.96 K/uL (1.2-3.4) L 08/21/20 05:57 [place] # (Auto) 1.10 K/uL (0.11-0.59) H 08/21/20 05:57 Eos # (Auto) 0.00 K/uL (0-0.5) 08/21/20 05:57 Baso # (Auto) 0.01 K/uL (0-0.2) 08/21/20 05:57 Immature Gran # (Auto) 0.04 K/uL (0.00-0.02) H 08/21/20 05:57 PT 10.3 Seconds (9.0-12.0) 07/31/20 09:18 INR 1.0 (0.9-1.1) 07/31/20 09:18 APTT 27.1 Seconds (21.0-31.0) 07/31/20 09:18 PTT Ratio 1.0 07/31/20 09:18 Sodium 134 mmol/L (136-145) L 08/21/20 05:57 Potassium 4.1 mmol/L (3.5-5.1) 08/21/20 05:57 Chloride 104 mmol/L (98-107) 08/21/20 05:57 Carbon Dioxide 26 mmol/L (21-32) 08/21/20 05:57 Anion Gap 4.0 (3-11) 08/21/20 05:57 BUN 20 mg/dl (7-18) H 08/21/20 05:57 Creatinine 0.98 mg/dl (0.6-1.2) 08/21/20 05:57 Est Cr Clr Drug Dosing 62.5 ml/min 08/21/20 05:57 Est GFR ( Amer) 68.2 ml/min 08/21/20 05:57 Est GFR (Non-Af Amer) 58.9 ml/min 08/21/20 05:57 BUN/Creatinine Ratio 20.1 (10-20) H 08/21/20 05:57 Glucose 128 mg/dl (70-99) H 08/21/20 05:57 Estimat Average Glucose 126 mg/dl 07/31/20 09:18 Hemoglobin A1c 6.0 % (4.5-5.6) H 07/31/20 09:18 Calcium 9.3 mg/dl (8.5-10.1) 08/21/20 05:57 Albumin 3.7 gm/dl (3.4-5.0) 07/31/20 09:18 Urine Color Yellow 07/31/20 09:18 Urine Appearance Clear (Clear) 07/31/20 09:18 Urine pH 6.5 (4.5-7.5) 07/31/20 09:18 Ur Specific [place] 1.011 (1.000-1.030) 07/31/20 09:18 Urine Protein Negative (Negative) 07/31/20 09:18 Urine Glucose (UA) Negative (Negative) 07/31/20 09:18 Urine Ketones Negative (Negative) 07/31/20 09:18 Urine Blood Negative (Negative) 07/31/20 09:18 Urine Nitrite Negative (Negative) 07/31/20 09:18 Urine Bilirubin Negative (Negative) 07/31/20 09:18 Urine Urobilinogen Negative (Negative) 07/31/20 09:18 Ur Leukocyte Esterase 1+ (Negative) H 07/31/20 09:18 Urine WBC (Auto) 10-30 /hpf (0-5) H 07/31/20 09:18 Urine RBC (Auto) 0-4 /hpf (0-4) 07/31/20 09:18 U Hyaline Cast (Auto) 0 /lpf (0-5) 07/31/20 09:18 U Epithel Cells (Auto) >30 /lpf (0-5) H 07/31/20 09:18 Urine Bacteria (Auto) 2+ (Negative) H 07/31/20 09:18 COVID-19 Eval Order Covid19 [facility] 08/20/20 Unknown SARS-CoV-2, RNA, NAAT NEGATIVE (NEGATIVE) 08/20/20 Unknown Blood Type A Negative 07/31/20 09:18 Antibody Screen NEGATIVE 07/31/20 09:18 Hip/Pelvis X-Ray 08/20/20 17:49 XR hip 1V RT w pelvis CLINICAL HISTORY: IN PACU - A/P PELVIS and LATERAL HIP COMPARISON: None. DISCUSSION: There are postsurgical changes of a total right hip arthroplasty. The acetabular and femoral components appear well seated. There is gas within soft tissues consistent with recent surgery. There are overlying skin mary. There are linear opaque densities lateral to the bladder to the right of midline. These cannot be further characterized on this study. These are potentially artifactual although calcification or contrast could appear similar.. IMPRESSION: 1. Postsurgical changes of a total right hip arthroplasty. No evidence of dislocation. ACT 112: Negative or not required by law. Electronically signed by: Ghanshyam Verdin M.D. 08/20/2020 6:11 PM
--- NOTE | 2020-08-21 09:42 | Orthopedic Progress Note ---
Date of Service August 21, 2020 Assessment & Plan (1) Degenerative joint disease of right hip: Postop day 1 status post right total hip arthroplasty -Ancef x24 then discontinue -DVT prophylaxis: SCDs, teds, 81 mg ASA twice daily -Weight-bear as tolerates right lower extremity -PT/OT -Posterior hip precautions -Postoperative x-ray demonstrates a well aligned well fixed prosthesis without fracture or dislocation -A.m. labs as hadzx-[id number]-lojzta secondary to surgical stress and/or pre operative steroids. Patient currently asymptomatic. -am labs, as above, hgb 11.9 -DC planning - home with Admission and Anticipated Discharge Date Admission Date: August 20, 2020 Subjective Postop day 1 Patient currently sitting up at the bedside. Awake and alert. Mild pain in the operative hip. No other complaints at this time. Denies shortness of breath, chest pain, lightheadedness. She is hoping to go home today. Review of Systems Review of Systems: All systems reviewed & are unremarkable except as noted in HPI & below Constitutional: as per Subjective / HPI Physical Exam Physical Exam: RLE NVSI +EHL/FHL/TA/GS SILT grossly, +2 DP pulse, compartments soft NT, dressing cdi. Constitutional: WD/WN, vitals as above Results & Data ([facility]) Vital Signs (Past 12 Hours) Vital Signs Temp Pulse Resp BP Pulse Ox 08/21/20 07:23 36.6 C 60 16 124/76 93 08/21/20 03:27 36.4 C L 65 16 124/75 92 Laboratory Results 08/21/20 08/21/20 08/20/20 Range/Units 05:57 05:57 Unknown WBC 16.37 H (4.8-10.8) K/uL RBC 4.18 L (4.2-5.4) M/uL Hgb 11.9 L (12.0-16.0) g/dL Hct 35.5 L (37-47) % MCV 84.9 (80-100) fL MCH 28.5 (25-34) pg MCHC 33.5 (32-36) g/dL RDW Std Deviation 40.4 (36.4-46.3) fL RDW Coeff of Nathan 12.9 (11.5-14.5) % Plt Count 268 (130-400) K/uL MPV 9.3 (7.4-10.4) fL Immature Gran % (Auto) 0.2 % Neut % (Auto) 87.1 % Lymph % (Auto) 5.9 % [place] % (Auto) 6.7 % Eos % (Auto) 0.0 % Baso % (Auto) 0.1 % Neut # (Auto) 14.26 H (1.4-6.5) K/uL Lymph # (Auto) 0.96 L (1.2-3.4) K/uL [place] # (Auto) 1.10 H (0.11-0.59) K/uL Eos # (Auto) 0.00 (0-0.5) K/uL Baso # (Auto) 0.01 (0-0.2) K/uL Immature Gran # (Auto) 0.04 H (0.00-0.02) K/uL Sodium 134 L (136-145) mmol/L Potassium 4.1 (3.5-5.1) mmol/L Chloride 104 (98-107) mmol/L Carbon Dioxide 26 (21-32) mmol/L Anion Gap 4.0 (3-11) BUN 20 H (7-18) mg/dl Creatinine 0.98 (0.6-1.2) mg/dl Est Cr Clr Drug Dosing 62.5 ml/min Est GFR ( Amer) 68.2 ml/min Est GFR (Non-Af Amer) 58.9 ml/min BUN/Creatinine Ratio 20.1 H (10-20) Glucose 128 H (70-99) mg/dl Calcium 9.3 (8.5-10.1) mg/dl COVID-19 Eval Order SARS-CoV-2, RNA, NAAT NEGATIVE (NEGATIVE) 08/20/20 Range/Units Unknown WBC (4.8-10.8) K/uL RBC (4.2-5.4) M/uL Hgb (12.0-16.0) g/dL Hct (37-47) % MCV (80-100) fL MCH (25-34) pg MCHC (32-36) g/dL RDW Std Deviation (36.4-46.3) fL RDW Coeff of Nathan (11.5-14.5) % Plt Count (130-400) K/uL MPV (7.4-10.4) fL Immature Gran % (Auto) % Neut % (Auto) % Lymph % (Auto) % [place] % (Auto) % Eos % (Auto) % Baso % (Auto) % Neut # (Auto) (1.4-6.5) K/uL Lymph # (Auto) (1.2-3.4) K/uL [place] # (Auto) (0.11-0.59) K/uL Eos # (Auto) (0-0.5) K/uL Baso # (Auto) (0-0.2) K/uL Immature Gran # (Auto) (0.00-0.02) K/uL Sodium (136-145) mmol/L Potassium (3.5-5.1) mmol/L Chloride (98-107) mmol/L Carbon Dioxide (21-32) mmol/L Anion Gap (3-11) BUN (7-18) mg/dl Creatinine (0.6-1.2) mg/dl Est Cr Clr Drug Dosing ml/min Est GFR ( Amer) ml/min Est GFR (Non-Af Amer) ml/min BUN/Creatinine Ratio (10-20) Glucose (70-99) mg/dl Calcium (8.5-10.1) mg/dl COVID-19 Eval Order Covid19 [facility] SARS-CoV-2, RNA, NAAT (NEGATIVE)
[2020-08-21] MEDS ORDERED: CeleBREX 200 MG CAP PO SCH (21:00)
--- NOTE | 2020-08-24 13:24 | Discharge Summary ---
Date of Service August 24, 2020 Admission HPI Per Admitting Provider The patient is a 69 year old female who presents with complaints of severe right hip pain and DJD. The patient has failed outpatient conservative treatments to this point which included NSAIDs, activity modification, home exercise/walking program. The patient's pain and limited function have progressed to the point where they severely hinder their activities of daily living and they no longer tolerate exercise programs. They are requesting to proceed with total hip replacement surgery. Principal Diagnosis Right total hip replacement Discharge Exam RLE NVSI +EHL/FHL/TA/GS SILT grossly, +2 DP pulse, compartments soft NT, dressing cdi. Constitutional WD/WN, vitals as above Discharge Data Allergies Allergy/AdvReac Type Severity Reaction Status Date / Time ondansetron Allergy Intermediate Hives Verified 08/20/20 12:07 morphine AdvReac Mild GI upset Verified 08/20/20 12:07 Procedures Performed Operation Date: 08/20/20 14:15 Actual Procedures p Right Total Hip Arthroplasty(Right) - Akbar Lion DO Hospital Course (1) Degenerative joint disease of right hip: Hospital Course: On 08/20/20 the patient was taken to the operating room, adequate anesthesia administered and underwent a right total hip arthroplasty. The patient tolerated the procedure well and was taken to the PACU in stable condition. Post-operatively the patient was started on a DVT ppx medication and given appropriate IV antibiotics. Consults were placed to physical therapy, occupational therapy and case management. On POD#1, the patient did well overnight and their pain was well controlled. Labs were drawn and the Hgb was 11.9. The patient progressed well with PT. Dressings were changed at this time and the incision was clean, dry and intact. The patients hospital stay was relatively uneventful and they were deemed stable by the orthopedic team and consultants to be discharged home with on 08/21/20. Discharge Instructions: Upon discharge the patient may weight bear as tolerates through their operative extremity. They were instructed to keep the incision clean and dry at all times. The patient may shower but should not submerge the incision, avoid bathing, pools and hot tubs. The patient was given a script for pain medication and should take as instructed. The patient was given a script for DVT ppx 81mg ASA BID and should take as directed. The patient was instructed to not drive or travel for long distances until cleared to do so. If the patient develops any symptoms of fevers, chills, nausea, vomiting, increased redness, swelling, pain or drainage from the surgical site, they should notify the office and/or proceed to the nearest emergency room. The patient should follow up in 10-14 days after surgery for their routine post-operative follow-up appointment and should call the office, to confirm the date and time. Postop day 1 status post right total hip arthroplasty -Ancef x24 then discontinue -DVT prophylaxis: SCDs, teds, 81 mg ASA twice daily -Weight-bear as tolerates right lower extremity -PT/OT -Posterior hip precautions -Postoperative x-ray demonstrates a well aligned well fixed prosthesis without fracture or dislocation -A.m. labs as [id number]-[id number] secondary to surgical stress and/or preoperative steroids. Patient currently asymptomatic. -hgb 11.9 -DC planning -home with home health services upon discharge Total Time Total Time Spent Total Time Spent (In Minutes): 30 Discharge Plan Discharge Items Patient Disposition: Home - Home Health Services Reason For Visit: Unilateral Primary Osteoarthritis Discharge Diagnosis: Right total hip replacement Condition on Discharge: Good Activity: Per Instructions section Lifting: Wait until after follow-up appointment Bathing: Keep incision dry Bathing Comment: No bathing, pools or hot tubs. Sexual Activity: Wait until after follow-up appointment Exercise/Sports: Wait until after follow-up appointment Driving/Machine Use: No driving. Weightbearing: Full weightbearing Non-emergency contact: Primary Care Provider and Surgeon Call non-emergency contact if: you have any medication questions, your symptoms worsen, your pain is not controlled, your pain is worsening, your pain is unusual for you, your pain is concerning for you, you have a fever, your temperature is above 101, your wound has increased redness, your wound has increased drainage and your wound pain has increased Follow-up/Referrals: Danny Bañuelos III, MD [Primary Care Provider] - Diet: Regular Addtl Attending Provider Instructions: ACTIVITY RECOMMENDATIONS: SELF CARE INSTRUCTIONS AFTER TOTAL HIP REPLACEMENT Until the incision and soft tissues around your hip have healed, there is a possibility that the hip prosthesis could dislocate. A. Observe the following precautions to prevent dislocation: 1. Don't bend your hip greater than 90 degrees. 2. Avoid crossing your legs or ankles while standing or lying. 3. Sit with your feet placed 6 inches apart. 4. When sitting, keep your knees below your hips. Sit on a firm surface, avoid deep, soft chairs and couches. Use an elevated toilet seat in the bathroom. 5. Don't bend over at the waist. Use a long handled shoehorn and a sock aid to help you put on your shoes and socks. A library sales consultant can help you pecan picker objects that are too high or too low to reach. 6. Keep car riding to a minimum for at least one month after surgery. B. Your balance may be shaky for a while. Use crutches or a walker until directed by your doctor. C. Use hand rails when walking on stairs. D. Wear low heeled shoes with non-slip soles. E. Be sure that your floors are free of things that could trip you - throw rugs, electrical cords, small objects. Avoid wet and waxed floors, especially with crutches and canes. F. Try to walk several times a day with rest periods between. G. Continue with all the exercises taught to you in the hospital. Again, make walking a part of your daily routine. SPECIAL CARE INSTRUCTIONS: VERY IMPORTANT TO READ AND REVIEW A. You may still be at risk for phlebitis and blood clots. 1. Wear surgical stockings (MARQUIS hose) for 2 weeks after surgery to improve circulation and reduce swelling. 2. Take Aspirin 81mg twice daily for 4 weeks or as directed by your doctor. This is your blood thinner. 3. High risk patients may be prescribed a stronger blood thinner if necessary. 4. If you are on Coumadin normally, your family doctor/seo coordinator should monitor your blood work. Expect a phone call the day of or the day after bloodwork is drawn to adjust your dosage. B. You must take antibiotics before having dental work, bladder, bowel and other surgery. Your doctor will provide you with a permanent card to carry melissa cribing precautions. C. Call [facility] if you have a fever, redness or swelling around the incision, cloudy drainage from incision, or sudden increase in pain in your hip, not relieved by your regular pain medication. D. Please call the office at if you have any concerns or ques tions about your operation or recovery. * YOU MAY SHOWER, NO TUB BATHS UNTIL CLEARED BY YOUR DOCTOR. * WEAR MARQUIS HOSE 20 HOURS PER DAY FOR 2 WEEKS. * YOU SHOULD USE A WALKER OR CRUTCHES FOR 2-4 WEEKS. THIS WILL HELP PREVENT STRAIN ON YOUR HIP MUSCLE AND ALLOW IT TO HEAL PROPERLY. YOU MAY WEAN TO A CANE TOLERATED. * MOST PATIENTS WILL HAVE HOME NURSING FOR THERAPY. IF YOU DECIDE TO DO OUTPATIENT PHYSICAL THERAPY, PLEASE SCHEDULE THIS 3 TIMES PER WEEK. *NICKOLAS incisional vac is a special dressing covering your incision. This dressing provides a sterile dry environment while you are healing. The dressing is to be left in place for 7 days post-operatively. Your home nurse or surgeon will remove. If you develop any redness or blisters or have any questions notify your surgeon immediately. FOLLOW UP VISIT: If appointment is not already scheduled: Please call [facility] to make a follow-up appointment for 2 weeks after your surgery at . Pending Studies at Discharge: No Stand-Alone Forms: [facility], Opioid Pain Management Medications and DC Order Prescriptions: New celecoxib [Celebrex] 200 mg Capsule 200 mg PO BID PRN (Reason: pain/inflammtion) Qty: 30 RF: 0 aspirin 81 mg Tablet,Delayed Release (Dr/Ec) 81 mg PO BID Qty: 56 RF: 0 acetaminophen 500 mg Tablet 1,000 mg PO Q8 PRN (Reason: pain/fevers) Qty: 90 RF: 0 oxycodone 5 mg Tablet 5 mg PO Q6H MDD 4 PRN (Reason: pain) Qty: 30 RF: 0 sennosides [Senokot] 8.6 mg Tablet 17.2 mg PO HS PRN (Reason: constipation) Qty: 30 RF: 0 Continued atorvastatin 20 mg tablet 20 mg PO HS Qty: 90 RF: 3 PreserVision AREDS [id number] cglc-ti-ryrx tablet 1 tab PO BID Qty: 60 RF: 2 multivitamin Tablet 1 tab PO QAM RF: 0 cranberry 500 mg Capsule 500 mg PO QAM RF: 0 potassium gluconate 595 mg (99 mg) Tablet 595 mg PO QAM RF: 0 Discontinued meloxicam 15 mg tablet 15 mg PO QAM RF: 0 acetaminophen [Acetaminophen Extra Strength] 500 mg Tablet 1,000 mg PO Q8H PRN (Reason: Pain) RF: 0 Discharge Orders: Discharge Order (Routine); Ordered 08/21/20 Ordered By: Glenn Crow/Other Patient Handouts: Prediabetes, 5 Steps for Eating Healthier, A1C Admission Data Admit Date/Time: 08/20/20 17:49 Attending Provider: Akbar Lion Admit Provider: Akbar Lion Primary Care Provider: Danny Bañuelos III Other Providers: [facility],Home Healthcare ; [facility] Other Interventions: Discharge Summary Assessment (RN) Last Done: 08/21/20 10:41
== END 2020-08-21 12:46 | disposition home health service (06) | DRG 470 ==
LOC: ASU 11:32 → 3E 11:32 → OBSVTOIN 17:49